=== PATIENT | male | born 1965 | race Caucasian/White ===

== ENCOUNTER 2016-04-18 11:39 | Emergency (ER) | payer OTHER ==
[2016-04-18 11:47] VITALS: TEMP 97.5
[2016-04-18] MEDS ORDERED: TDAP ADULT 0.5 ML VIAL (BOOSTRIX) IM ONE (12:09)
--- NOTE | 2016-04-18 12:36 | EDPHY ---
H & P Stated Complaint: fall at 4am hit head on car Time Seen by Provider: 04/18/16 12:01 HPI/ROS: CHIEF COMPLAINT: Head injury, confusion HISTORY OF PRESENT ILLNESS: The patient presents to the emergency department for evaluation of head injury and subsequent confusion following a mechanical fall. The patient was seen by his primary care provider in seen to the ED for further evaluation. He reportedly slipped on ice. He is not anticoagulated. He has had complaints of headache and confusion since the fall. The patient did strike himself over his left eye sustaining a superficial nonsuturable laceration. He denies any neck pain, back pain, numbness, weakness, chest pain , difficulty breathing or other concerns. REVIEW OF SYSTEMS: A comprehensive 10 point review of systems is otherwise negative aside from elements mentioned in the history of present illness. Source: Patient Exam Limitations: No limitations - Personal History Current Tetanus/Diphtheria Vaccine: Unsure Current Tetanus Diphtheria and Acellular Pertussis (TDAP): Unsure - Medical/Surgical History Hx Asthma: No Hx Chronic Respiratory Disease: No Hx Diabetes: No Hx Cardiac Disease: No Hx Renal Disease: No Hx Cirrhosis: No Hx Alcoholism: No Hx HIV/AIDS: No Hx Splenectomy or Spleen Trauma: No Other PMH: HTN, - Social History Smoking Status: Current some day smoker - Physical Exam Exam: General Appearance: Alert, no distress Head: Superficial laceration noted over the left eyebrow Eyes: Pupils equal, round, reactive ENT, Mouth: No hemotympanum, no oral trauma Neck: Nontender, trachea midline Respiratory: No chest wall tender, subcutaneous air, lungs clear bilaterally Cardiovascular: Regular rate and rhythm Abdomen: Abdomen is soft and nontender, pelvis stable Skin: No lacerations, No abrasion Back: No midline T/L/S pain Extremities: Nontender, full range of motion Neurological: A&Ox3, normal motor function, normal sensory exam Constitutional: Initial Vital Signs Temperature (C) 36.4 C 04/18/16 11:42 Heart Rate 114 H 04/18/16 11:42 Respiratory Rate 18 04/18/16 11:42 Blood Pressure 143/93 H 04/18/16 11:42 O2 Sat (%) 96 04/18/16 11:42 O2 Delivery Mode Room Air Allergies/Adverse Reactions: No Known Allergies Allergy (Verified 04/18/16 11:48) Home Medications: Medication Instructions Recorded Atenolol 12/07/14 Medical Decision Making - Diagnostics Imaging: CT head without contrast: Negative for intracranial hemorrhage, skull fracture or other acute abnormality. ED Course/Re-evaluation: The patient presents to the ED with symptoms consistent with a minor concussion following a head injury. Given his complaints of headache and confusion I do feel a CT scan is indicated. This has been ordered at 12:[address] scan of the brain demonstrates no evidence of intracranial hemorrhage or skull fracture. The patient continues to be neurologically intact. The patient is not anticoagulated. He can safely be discharged home and observe by his . The patient is discharged home with a customary set of instructions including aftercare in the treatment of a concussion. The patient is given instructions to return to the ED for markedly worsening symptoms or other concerns. examination at 1:15 p.m.: GCS 15, patient continues to have no midline cervical spine tenderness. The patient's laceration is nonsuturable. The patient's tetanus was updated. Differential Diagnosis: Differential diagnosis considered includes intracranial hemorrhage, skull fracture, concussion, laceration - Data Points Medications Given: Discontinued Medications Diphtheria/Tetanus/Acell Pertussis (Boostrix) 0.5 ml IM .ONCE ONE Stop: 04/18/16 12:10 Last Admin: 04/18/16 12:16 Dose: 0.5 ml Departure - Departure Disposition: Home, Routine, Self-Care Clinical Impression: Concussion Condition: Good Instructions: Concussion (ED) Additional Instructions: 1. Please return to the emergency department for markedly worsening symptoms, nausea, numbness, weakness or other concerns. 2. Concussion aftercare as directed. Referrals: Darren Gandhi MD [Primary Care Provider] - As per Instructions
--- NOTE | 2016-04-18 12:56 | CT ---
CT Brain (Without Contrast) 1236 hours History: Headache, head trauma, left eyebrow laceration status post fall. Comparison: None. Technique: Axial computed tomographic images of the brain without contrast. Dose reduction technique s were utilized. Study repeated due to motion artifact. Findings: Ventricles, cisterns, and sulci are normal without atrophy, hydrocephalus, midline shift/h erniation, or epidural/subdural hematomas. No acute intraparenchymal hemorrhage, definite infarct, or mass effect. Bone windows demonstrate no displaced fractures. Paranasal sinuses and mastoid air cell s are clear. Impression: 1. Normal CT brain without contrast. 2. No epidural or subdural hematoma. Findings and recommendations discussed with Emergency Department physician, Dr. Eder Ruff, at 12 50 hours today. Final report concurs with initial preliminary interpretation.
[2016-04-18 13:32] VITALS: BP 127/84; PULSE 84; RESP 16; O2SAT 97
== END 2016-04-18 13:51 | disposition home or self-care (01) ==
PROC: 0HQ1XZZ Repair Face Skin, External Approach (ICD-10-PCS; principal; 2016-04-18)
DX: S06.0X0A Concussion without loss of consciousness, initial encounter (principal); S01.81XA Laceration without foreign body of other part of head, initial encounter; F17.200 Nicotine dependence, unspecified, uncomplicated; I10 Essential (primary) hypertension; Z23 Encounter for immunization; W00.0XXA Fall on same level due to ice and snow, initial encounter; Y93.89 Activity, other specified

== ENCOUNTER 2016-04-25 15:17 | Emergency (ER) | payer OTHER ==
[2016-04-25 15:29] VITALS: RESP 18; TEMP 99
--- NOTE | 2016-04-25 15:30 | EDPHY ---
H & P Stated Complaint: possible seizure Time Seen by Provider: 04/25/16 15:30 HPI/ROS: CHIEF COMPLAINT: First-time seizure HISTORY OF PRESENT ILLNESS: The patient presents to the emergency department after a first-time seizure. The patient was at work and reportedly had a witnessed seizure. The patient has no recollection of those events. The patient was seen in the emergency department approximately 1 week ago for head injury. The patient tells me that point time he significantly curtailed his daily alcohol use. Reportedly he developed vomiting on Saturday and Saturday which resolved. He has felt weak and dehydrated since that time. The patient is currently tremulous. He denies acute headache. He is not anticoagulated. He denies focal numbness or weakness. The patient did sustain a laceration above his left eyebrow which was repaired and sutures removed accordingly. Current medication includes only atenolol. REVIEW OF SYSTEMS: A comprehensive 10 point review of systems is otherwise negative aside from elements mentioned in the history of present illness. Source: Patient Exam Limitations: No limitations - Personal History Current Tetanus Diphtheria and Acellular Pertussis (TDAP): Yes - Medical/Surgical History Hx Asthma: No Hx Chronic Respiratory Disease: No Hx Diabetes: No Hx Cardiac Disease: No Hx Renal Disease: No Hx Cirrhosis: No Hx Alcoholism: No Hx HIV/AIDS: No Hx Splenectomy or Spleen Trauma: No Other PMH: HTN, - Family History Significant Family History: No pertinent family hx - Social History Smoking Status: Current some day smoker Alcohol Use: Other - Physical Exam Exam: General Appearance: Alert, tremulous, no acute distress Head: Recent laceration clean dry and intact Eyes: Pupils equal, round, reactive ENT, Mouth: No hemotympanum, no oral trauma Neck: Nontender, trachea midline Respiratory: No chest wall tender, subcutaneous air, lungs clear bilaterally Cardiovascular: Regular rate and rhythm Abdomen: Abdomen is soft and nontender, pelvis stable Skin: No lacerations, No abrasion Back: No midline T/L/S pain Extremities: Nontender, full range of motion Neurological: A&Ox3, normal motor function, normal sensory exam Constitutional: Initial Vital Signs Temperature (C) 37.2 C 04/25/16 15:27 Heart Rate 105 H 04/25/16 15:27 Respiratory Rate 18 04/25/16 15:27 Blood Pressure 112/100 H 04/25/16 15:27 O2 Sat (%) 96 04/25/16 15:27 O2 Delivery Mode Room Air Allergies/Adverse Reactions: No Known Allergies Allergy (Verified 04/25/16 15:27) Home Medications: Medication Instructions Recorded Atenolol 12/07/14 Ondansetron Odt [Zofran Odt] 4 mg PO Q4PRN PRN #20 tab 04/25/16 chlordiazePOXIDE [Librium 25 mg 25 mg PO TID #21 cap 04/25/16 (*)] Medical Decision Making - Diagnostics Imaging: CT head without contrast: Negative for delayed bleeding. Study results reported to me by Dr. Shaw. ED Course/Re-evaluation: The patient presents to the emergency department after a likely alcohol withdrawal seizure. Given his recent history of head injury, I did repeat his CT scan which demonstrates no evidence of delayed bleeding. The patient did receive some IV Ativan as well as normal saline. The patient had serial examinations throughout his stay in the ED. The patient will be discharged home with a prescription for Librium. The patient has been informed not to drive or participate in dangerous activities until cleared to do so by Neurology. Patient was re-evaluated at 6:00 p.m.. No recurrent seizure activity in the ED. Symptoms of mild alcohol withdrawal have improved with Ativan. The patient will be discharged home with a short course of Librium and Zofran. He is given customary aftercare instructions and return precautions. Differential Diagnosis: Differential diagnosis considered includes delayed intracranial hemorrhage, metabolic abnormality, dehydration, seizure, status epilepticus, alcohol withdrawal - Data Points Laboratory Results: Laboratory Results 04/25/16 15:35 04/25/16 15:35 04/25/16 15:35 WBC 7.93 10^3/uL (3.80-9.50) RBC 3.73 L 10^6/uL (4.40-6.38) Hgb 12.8 L g/dL (13.7-17.5) Hct 35.8 L % (40.0-51.0) MCV 96.0 fL (81.5-99.8) MCH 34.3 H pg (27.9-34.1) MCHC 35.8 g/dL (32.4-36.7) RDW 14.5 % (11.5-15.2) Plt Count 83 L 10^3/uL (150-400) MPV 11.2 fL (8.7-11.7) Neut % (Auto) 81.2 H % (39.3-74.2) Lymph % (Auto) 4.7 L % (15.0-45.0) Mcclain % (Auto) 12.7 % (4.5-13.0) Eos % (Auto) 0.3 L % (0.6-7.6) Baso % (Auto) 0.3 % (0.3-1.7) Nucleat RBC Rel Count 0.0 % (0.0-0.2) Absolute Neuts (auto) 6.45 10^3/uL (1.70-6.50) Absolute Lymphs (auto) 0.37 L 10^3/uL (1.00-3.00) Absolute Monos (auto) 1.01 H 10^3/uL (0.30-0.80) Absolute Eos (auto) 0.02 L 10^3/uL (0.03-0.40) Absolute Basos (auto) 0.02 10^3/uL (0.02-0.10) Absolute Nucleated RBC 0.00 10^3/uL (0-0.01) Immature Gran % 0.8 % (0.0-1.1) Immature Gran # 0.06 10^3/uL (0.00-0.10) Sodium 136 mEq/L (134-144) Potassium 3.7 mEq/L (3.5-5.2) Chloride 95 L mEq/L (97-110) Carbon Dioxide 26 mEq/l (22-31) Anion Gap 15 mEq/L (8-16) BUN 17 mg/dL (7-23) Creatinine 1.1 mg/dL (0.7-1.3) Estimated GFR > 60 Glucose 115 H mg/dL (70-100) Calcium 8.9 mg/dL (8.5-10.4) Medications Given: Discontinued Medications Sodium Chloride (Ns) 1,000 mls @ 0 mls/hr IV ONCE ONE PRN Reason: Wide Open Stop: 04/25/16 17:07 Last Admin: 04/25/16 17:22 Dose: 1,000 mls Lorazepam (Ativan Injection) 1 mg IVP EDNOW ONE Stop: 04/25/16 17:07 Last Admin: 04/25/16 17:22 Dose: 1 mg Ondansetron HCl (Zofran) 4 mg IVP EDNOW ONE Stop: 04/25/16 17:07 Last Admin: 04/25/16 17:22 Dose: Not Given Departure - Departure Disposition: Home, Routine, Self-Care Clinical Impression: Alcohol withdrawal seizure Condition: Good Instructions: Alcohol Withdrawal (ED) Additional Instructions: 1. No driving, dangerous activities such as riding a ski lift, swimming in a pool or other behavior that could put you or someone else at risk in the event of a recurrent seizure. You will need to be cleared by a neurologist to resume these activities. 2. Please return to the ED for recurrent seizure, headache, numbness, weakness, altered mental status or other concerns. 3. Please follow up with neurologist you have been referred to this week to schedule a follow-up appointment. 4. Zofran as needed for nausea. Please take Librium as needed for any symptoms of alcohol withdrawal including tremor and nausea. Referrals: David Stahl MD [Medical Doctor] - As per Instructions Prescriptions: chlordiazePOXIDE [Librium 25 mg (*)] 25 mg PO TID #21 cap Ondansetron Odt [Zofran Odt] 4 mg PO Q4PRN PRN #20 tab PRN Reason: For Nausea
[2016-04-25 15:53] LABS: % IMMATURE GRANULYOCYTES 0.8 % (0.0-1.1); ABSOLUTE IMMATURE GRANULOCYTES 0.06 10^3/uL (0.00-0.10); ADD DIFF? NO; ADD MORPH? NO; ADD SCAN? NO; ATYPICAL LYMPHOCYTE FLAG 10 (0-99); FRAGMENT RBC FLAG 10 (0-99); HEMATOCRIT 35.8 % (40.0-51.0); HEMOGLOBIN 12.8 g/dL (13.7-17.5); LEFT SHIFT FLG 10 (0-99); LIPEMIA HEMOLYSIS FLAG 90 (0-99); MEAN CELL HEMOGLOBIN 34.3 pg (27.9-34.1); MEAN CELL HEMOGLOBIN CONCENTR. 35.8 g/dL (32.4-36.7); MEAN PLATELET VOLUME 11.2 fL (8.7-11.7); PLATELET CLUMPS FLAG 10 (0-99); PLATELET COUNT 83 10^3/uL (150-400); RED BLOOD CELL COUNT 3.73 10^6/uL (4.40-6.38); RED CELL DISTRIBUTION WIDTH 14.5 % (11.5-15.2)
[2016-04-25 16:21] LABS: ANION GAP 15 mEq/L (8-16); CALCIUM 8.9 mg/dL (8.5-10.4); CARBON DIOXIDE 26 mEq/l (22-31); CHLORIDE 95 mEq/L (97-110); CREATININE 1.1 mg/dL (0.7-1.3); GLOMERULAR FILTRATION RATE > 60; GLUCOSE 115 mg/dL (70-100); POTASSIUM 3.7 mEq/L (3.5-5.2); SODIUM 136 mEq/L (134-144)
--- NOTE | 2016-04-25 16:49 | CT ---
CT Brain (Without Contrast) at 1634 hours History: EtOH, trauma, seizure. Comparison: CT brain April 18, 2016. Technique: Axial computed tomographic images of the brain without contrast. Dose reduction techniques were utilized. Findings: Ventricles, cisterns, and sulci are widened consistent with atrophy. No hydrocephalus, mid line shift/herniation, or epidural/subdural hematomas. No acute intraparenchymal hemorrhage or mass e ffect. Bone windows demonstrate no displaced fractures. Paranasal sinuses and mastoid air cells are c lear. Impression: 1. Mild atrophy. 2. No acute hemorrhage, hydrocephalus, or mass effect. 3. No epidural or subdural hematoma. Findings and recommendations discussed with Emergency Department physician, Dr. Eder Mccloud at 1645 hour, today. Final report concurs with initial preliminary interpretation.
[2016-04-25] MEDS ORDERED: LORazepam 2 MG/ML INJ IVP ONE (17:06)
[2016-04-25] MEDS ORDERED: NS 1,000 ML IV ONE ×2 (17:06)
[2016-04-25] MEDS ORDERED: ONDANSETRON 4 MG/2 ML VIAL IVP ONE (17:06)
[2016-04-25 18:08] VITALS: BP 124/78; PULSE 98; O2SAT 100
== END 2016-04-25 18:08 | disposition home or self-care (01) ==
LOC: EDBD → EDUNIT#
DX: R56.9 Unspecified convulsions (principal); F10.239 Alcohol dependence with withdrawal, unspecified; I10 Essential (primary) hypertension; F17.200 Nicotine dependence, unspecified, uncomplicated
CPT/HCPCS: 96374; J2405

== ENCOUNTER → 2016-06-10 | Outpatient (CLI) | payer OTHER | LOC: FIMAGING 15:04 | PROVIDERS: ATTEND Psychiatry & Neurology Neurology | DX: R56.9 Unspecified convulsions (principal); G31.9 Degenerative disease of nervous system, unspecified ==